=== PATIENT | male | born 1985 | race Two or more races ===

== ENCOUNTER 2017-05-28 12:31 | Emergency (ER) | payer SELFPAY ==
[2017-05-28 13:24] LABS: ADD MAN DIFF? NO
[2017-05-28 13:26] LABS: BASO % 1 % (0-3); EOS % 1 % (0-3); HEMATOCRIT 47.4 % (39.0-53.0); HEMOGLOBIN 16.3 g/dL (13.0-17.5); LYMPH # 1.9 x10^3/uL (1.0-4.8); LYMPH % 33 % (24-48); MEAN CORPUSCULAR HEMOGLOBIN 31 pg (25-35); MEAN CORPUSCULAR HGB CONC 34 g/dL (31-37); MEAN CORPUSCULAR VOLUME 89 fL (79-100); MONO # 0.4 x10^3/uL (0.0-1.1); MONO % 7 % (0-9); NEUT # 3.4 x10^3uL (1.8-7.7); NEUT % 59 % (31-73); PLATELET COUNT 223 x10^3/uL (140-400); RED CELL DISTRIBUTION WIDTH 12.5 % (11.5-14.5); WHITE BLOOD COUNT 5.8 x10^3/uL (4.0-11.0)
[2017-05-28 13:29] LABS: BILIRUBIN,URINE NEGATIVE (NEG); COLOR,URINE YELLOW; GLUCOSE,URINE NEGATIVE (NEG); NITRITE,URINE NEGATIVE (NEG); PROTEIN,URINE NEGATIVE (NEG-TRACE); UROBILINOGEN,URINE 0.2 mg/dL (0.2 mg/dL)
[2017-05-28 13:37] LABS: ANION GAP 11 (6-14); BLOOD UREA NITROGEN 15 mg/dL (8-26); BUN/CREATININE RATIO 19 (6-20); CALCIUM 8.9 mg/dL (8.5-10.1); CARBON DIOXIDE 26 mmol/L (21-32); CHLORIDE 103 mmol/L (98-107); CREATININE 0.8 mg/dL (0.7-1.3); GFR 112.8; GLUCOSE 115 mg/dL (70-99); POTASSIUM 3.8 mmol/L (3.5-5.1); SODIUM 140 mmol/L (136-145)
[2017-05-28] MEDS: LABETALOL 20 MG/4 ML DISP.SYRIN. IVP (13:39)
[2017-05-28] MEDS: IV NORMAL SALINE 500ML BAG 500 ML IV (13:39)
[2017-05-28 13:43] LABS: ALBUMIN 4.2 g/dL (3.4-5.0); ALK PHOS 132 U/L (46-116); ALT (SGPT) 68 U/L (16-63); AST (SGOT) 39 U/L (15-37); LIPASE 106 U/L (73-393); TOTAL BILIRUBIN 0.5 mg/dL (0.2-1.0); TOTAL PROTEIN 8.3 g/dL (6.4-8.2)
[2017-05-28 13:45] LABS: TROPONINI < 0.017 ng/mL (0.000-0.055)
[2017-05-28 13:48] LABS: NT-PRO BNP 9 pg/mL (0-124)
[2017-05-28 13:53] LABS: BACTERIA,URINE 0 /HPF (0-FEW); CLARITY,URINE CLEAR; RBC,URINE 0 /HPF (0-2); SQUAMOUS EPITHELIAL CELL,UR OCC /LPF; WBC,URINE 0 /HPF (0-4)
== END 2017-05-28 14:31 | disposition home or self-care (01) ==
LOC: ER 12:31
DX: I10 Essential (primary) hypertension (principal); R94.5 Abnormal results of liver function studies; R07.89 Other chest pain; R11.2 Nausea with vomiting, unspecified; R05 Cough; Z79.899 Other long term (current) drug therapy
CPT/HCPCS: 36415; 71046; 80053; 81001; 83690; 83880; 84484; 85025; 93005; 96360; 99285-25; J7040